=== PATIENT | male | born 1970 | race Hispanic/Latino ===

== ENCOUNTER 2019-10-07 10:00 | Inpatient (IN) | payer BC ==
[~2019-10-07] VITALS: Ht 188 cm; Wt 153.3 kg
[2019-10-07 10:15] VITALS: BP 175/91
[2019-10-07 12:30] LABS: BASOPHILS % (AUTO) 0.7 % (0.0-5.0); EOSINOPHILS % (AUTO) 3.4 % (0.0-8.0); HEMATOCRIT 42.3 % (42-54); LYMPHOCYTES % (AUTO) 30.4 % (21.0-51.0); MEAN CORPUSCULAR HEMOGLOBIN 29.7 pg (27.0-33.0); MEAN CORPUSCULAR HGB CONC 33.1 g/dL (32.0-36.0); MEAN CORPUSCULAR VOLUME 89.6 fL (79-99); NEUTROPHILS % (AUTO) 56.2 % (40.0-77.0); PLATELET COUNT (AUTO) 290 K/uL (130-400); RED BLOOD CELL COUNT(AUTO) 4.72 MIL/uL (4.50-6.20); RED CELL DISTRIBUTION WIDTH 12.6 % (11.0-15.5); WHITE BLOOD COUNT (AUTO) 8.6 K/uL (4.8-10.8)
[2019-10-07 12:39] LABS: APPEARANCE,URINE Clear (CLEAR); BILIRUBIN,URINE Negative (NEGATIVE); COLOR,URINE Yellow (YELLOW); GLUCOSE, URINE (UA) Negative (NEGATIVE); KETONES,URINE Negative (NEGATIVE); LEUKOCYTE ESTERASE ,URINE Negative (NEGATIVE); NITRATE,URINE Negative (NEGATIVE); OCCULT BLOOD,URINE Negative (NEGATIVE); PROTEIN,URINE Negative (NEGATIVE); UROBILINOGEN,URINE 0.2 mg/dL (0.2-1.0)
[2019-10-07 12:48] LABS: CREATININE 1.1 mg/dL (0.5-1.5); INR 0.92 (0.85-1.15); POTASSIUM 4.1 mmol/L (3.5-5.1)
[2019-10-09] MEDS ORDERED: AMLO-257 PO (10:36)
[2019-10-09] MEDS ORDERED: METF-446 PO (10:36)
[2019-10-09] MEDS ORDERED: LOSA100T58 PO (10:36)
[2019-10-10] VITALS (22 sets, daily range): BP systolic 112–179; BP diastolic 63–94
[2019-10-10] MEDS ORDERED: SODIUM CHLORIDE 0.9% 1000ML 1,000 ML IV ONE (08:29)
[2019-10-10] MEDS: CEFAZOLIN SODIUM 1 GM VIAL IVP SCH ×2 (08:30→09:50)
[2019-10-10] MEDS ORDERED: METOCLOPRAMIDE 10 MG/2 ML VIAL ONE (08:39)
[2019-10-10] MEDS ORDERED: KETOROLAC TROMETHAMINE 15MG/ML ONE (08:40)
[2019-10-10] MEDS ORDERED: ACETAMINOPHEN EXTRA STRENGTH 500 MG TABLET ONE (08:40)
[2019-10-10] MEDS ORDERED: CELECOXIB 200 MG CAP ONE (08:40)
--- NOTE | 2019-10-10 09:04 | NUR ---
POTENTIAL FOR INFECTION: CLIPPED LEFT LEG / LT KNEE PER MARILUZ DIXON, FOLLOWED BY WIPING WITH ROSE: 2% CHLORHEXIDINE GLUCONATE CLOTH PATIENTS PRE-OP SKIN PREP
[2019-10-10] MEDS ORDERED: TRANEXAMIC ACID 1000MG/10ML ONE ×2 (09:33→12:57)
[2019-10-10] MEDS ORDERED: CEFAZOLIN SODIUM 1 GM VIAL ONE (09:33)
[2019-10-10] MEDS ORDERED: LIDOCAINE PF 2% 5ML ABBOJECT ONE (09:40)
[2019-10-10] MEDS ORDERED: ROPIVACAINE 0.5% 5MG/ML 30ML IJ ONE (09:40)
[2019-10-10] MEDS ORDERED: SUCCINYLCHOLINE CHLORIDE 20 MG/ML 10 ML VIAL ONE (09:40)
[2019-10-10] MEDS ORDERED: ROCURONIUM 10MG/1ML SYR 10 MG/ML ML ONE (09:41)
[2019-10-10] MEDS ORDERED: FENTANYL CITRATE PF 50 MCG/1 ML 5ML AMP IV ONE (09:41)
[2019-10-10] MEDS ORDERED: PROPOFOL 10 MG/ML 20ML VIAL IV ONE ×2 (09:41→10:43)
[2019-10-10] MEDS ORDERED: ONDANSETRON HCL 4 MG/2 ML VIAL ONE (09:41)
[2019-10-10] MEDS ORDERED: MIDAZOLAM HCL 1 MG/ML 2ML VIAL ONE (09:44)
[2019-10-10] MEDS ORDERED: DEXAMETHASONE SOD PHOSPHATE 10MG/ML 1ML VIAL ONE (10:54)
[2019-10-10] MEDS ORDERED: GLYCOPYRROLATE 1 MG/5 ML SYRINGE ONE (11:45)
[2019-10-10] MEDS ORDERED: NEOSTIGMINE 5MG/5ML SYR IV ONE (11:47)
[2019-10-10] MEDS ORDERED: PHENYLEPHRINE HCL 10 MG/ML 1ML VIAL IV ONE (11:58)
[2019-10-10] MEDS ORDERED: DiphenhydrAMINE HCL 50 MG/ML VIAL IVP PRN (12:00)
[2019-10-10] MEDS ORDERED: POTASSIUM CHLORIDE 20MEQ/100ML 100 ML IV PRN (12:00)
[2019-10-10] MEDS: ACETAMINOPHEN EXTRA STRENGTH 500 MG TABLET PO SCH ×2 (12:00→20:31)
[2019-10-10] MEDS ORDERED: FERROUS FUMARATE 324 MG TABLET PO PRN (12:00)
[2019-10-10] MEDS ORDERED: ONDANSETRON HCL 4 MG/2 ML VIAL IVP PRN (12:00)
[2019-10-10] MEDS ORDERED: LIDOCAINE HCL-MPF 1% 2ML VIAL IV PRN (12:00)
[2019-10-10] MEDS ORDERED: POTASSIUM CHLORIDE 10% ELIXIR 20 MEQ/15 ML UDCUP PO PRN (12:00)
[2019-10-10] MEDS ORDERED: TEMAZEPAM 15 MG CAPSULE PO PRN (12:00)
[2019-10-10] MEDS ORDERED: CALCIUM CARBONATE 500 MG TABLET PO PRN (12:00)
[2019-10-10] MEDS ORDERED: POTASSIUM CHLORIDE 20 MEQ ERTAB PO PRN (12:00)
[2019-10-10] MEDS ORDERED: OXYCODONE HCL 5 MG TAB PO PRN (12:00)
[2019-10-10] MEDS ORDERED: FENTANYL CITRATE PF 50 MCG/1 ML 2ML VIAL ONE (12:01)
[2019-10-10] MEDS ORDERED: MEPERIDINE-PF 25 MG/ML SYG ONE (12:37)
[2019-10-10] MEDS: SODIUM CHLORIDE 0.9% 1000ML 1,000 ML IV SCH (13:45)
[2019-10-10] MEDS: OXYCODONE HCL 5 MG TAB PO PRN ×2 (14:46→23:48)
--- NOTE | 2019-10-10 16:51 | NUR ---
cm note met with patient and states resides at home alone., independent with adls and self care. 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 dc plan is back home at time of dc. per pt states justine will be staying with him at home after dc until he recovers. choice letter obtained for 3 in1 chair, and walker. also for HH . spoke to Tiffany at [facility] [phone] and states pt is accepted and they can followoup if dc over the weekend , have nurse call report. Addendum: 10/10/19 at 1704 by MOISES CASTILLO CM Amended: Links added.
[2019-10-10] MEDS: METFORMIN HCL 500 MG TABLET PO SCH (17:10)
[2019-10-10] MEDS: CEFAZOLIN 3GM /D5W 100ML 100 ML IV SCH (17:11)
[2019-10-10] MEDS: TRAMADOL HCL 50 MG TABLET PO PRN (17:17)
[2019-10-10] MEDS: INSULIN HUMULIN R 100 UNIT/ML 3ML SQ SCH ×2 (17:18→20:51)
[2019-10-10] MEDS: FAMOTIDINE 20MG TAB 20 MG TAB PO SCH (20:30)
[2019-10-10] MEDS: CELECOXIB 200 MG CAP PO SCH (20:30)
[2019-10-10] MEDS: PREGABALIN 25 MG CAP PO SCH (20:31)
[2019-10-10] MEDS: KETOROLAC TROMETHAMINE 15MG/ML IV PRN (20:41)
[2019-10-10] MEDS ORDERED: AMLODIPINE BESYLATE 5 MG TAB PO SCH (21:00)
[2019-10-11] MEDS: SODIUM CHLORIDE 0.9% 1000ML 1,000 ML IV SCH ×2 (00:01→06:08)
[2019-10-11] MEDS: CEFAZOLIN 3GM /D5W 100ML 100 ML IV SCH (00:03)
[2019-10-11 04:00] VITALS: BP 125/78
[2019-10-11] MEDS: ACETAMINOPHEN EXTRA STRENGTH 500 MG TABLET PO SCH ×2 (04:06→11:19)
[2019-10-11 05:11] LABS: HEMATOCRIT 33.9 % (42-54); MEAN CORPUSCULAR HEMOGLOBIN 30.7 pg (27.0-33.0); MEAN CORPUSCULAR HGB CONC 33.9 g/dL (32.0-36.0); MEAN CORPUSCULAR VOLUME 90.4 fL (79-99); RED BLOOD CELL COUNT(AUTO) 3.75 MIL/uL (4.50-6.20); RED CELL DISTRIBUTION WIDTH 12.6 % (11.0-15.5); WHITE BLOOD COUNT (AUTO) 11.2 K/uL (4.8-10.8)
[2019-10-11 05:27] LABS: CREATININE 1.3 mg/dL (0.5-1.5)
[2019-10-11] MEDS: INSULIN HUMULIN R 100 UNIT/ML 3ML SQ SCH ×3 (06:08→16:30)
[2019-10-11] MEDS: OXYCODONE HCL 5 MG TAB PO PRN ×3 (07:04→16:29)
[2019-10-11] MEDS: METFORMIN HCL 500 MG TABLET PO SCH ×2 (07:25→16:27)
[2019-10-11 07:56] VITALS: BP 132/72
[2019-10-11] MEDS: FAMOTIDINE 20MG TAB 20 MG TAB PO SCH (08:34)
[2019-10-11] MEDS: CELECOXIB 200 MG CAP PO SCH (08:34)
[2019-10-11] MEDS: TRAMADOL HCL 50 MG TABLET PO PRN (08:34)
[2019-10-11] MEDS: PREGABALIN 25 MG CAP PO SCH (08:34)
[2019-10-11] MEDS: APIXABAN 2.5 MG TABLET PO SCH ×2 (08:35→17:19)
[2019-10-11] MEDS ORDERED: LOSARTAN 100 MG TABLET PO SCH (09:00)
[2019-10-11] MEDS ORDERED: POLYETHYLENE GLYCOL 3350 17 GM POWD.PACK PO SCH (09:00)
[2019-10-11] MEDS ORDERED: TAMSULOSIN HCL 0.4 MG CAP.ER.24H PO SCH (09:00)
[2019-10-11] MEDS: KETOROLAC TROMETHAMINE 15MG/ML IV PRN (11:17)
[2019-10-11 11:46] VITALS: BP 132/82
[2019-10-11 14:16] VITALS: BP 140/94
--- NOTE | 2019-10-11 14:27 | NUR ---
DCP/[facility] DME: Spoke elsy Vargas this afternoon regarding DME, states hog driver out to deliver equipment. Dr. Palma at nurses station, upated on [facility] acceptance and DME.
[2019-10-11] MEDS ORDERED: HYDR-4457 PO (15:08)
[2019-10-11] MEDS ORDERED: APIX2.5T PO (15:08)
--- NOTE | 2019-10-11 15:40 | NUR ---
[facility] CALLED [facility] [phone] TO GIVE REPORT THAT PATIENT WILL DISCHARGED TODAY. NO ANSWER AT THIS TIME, LEFT VOICEMAIL WITH CALLBACK NUMBER. FAXED MD DISCHARGE ORDERS TO [facility] [phone].
[2019-10-11 16:41] VITALS: BP 122/78
--- NOTE | 2019-10-11 16:45 | NUR ---
[facility] GAVE REPORT TO NURSE FULLER OF [facility] [phone]. INFORMED THAT F/U APPT WITH DR. HERNÁNDEZ PENDING TO BE SCHEDULED, RX, AND ELIO DRESSING TO BE REMOVED ON 10/17/2019, PHYSICAL THERAPY WBAT WITH WALKER.
--- NOTE | 2019-10-11 17:00 | NUR ---
DISCHARGE DISCHARGE TEACHING PROVIDED TO PATIENT REGARDING RX (ELIQUIS, NORCO). PROVIDED WITH RX DISCOUNT FOR ELIQUIS. [facility] HAS DROPPED OFF WALKER AND 3 IN 1 CHAIR ALREADY. PATIENT INFORMED THAT F/U APPT WITH DR. HERNÁNDEZ PENDING TO BE SCHEDULED, AND ELIO DRESSING TO BE REMOVED ON 10/17/2019 BY HOME HEALTH NURSE, CONTINUE PHYSICAL THERAPY TEACHING WBAT TO LLE WITH WALKER. PERFORMING LEFT KNEE ELIO DRESSING CHANGE. LEFT KNEE INCISION APPROXIMATED AND ASYMPTOMATIC, APPLIED NEW ELIO DRESSING, FLASHING GREEN. PATIENT AWAITING HIS TO PICK HIM UP.
--- NOTE | 2019-10-11 17:34 | NUR ---
[employer]: [employer] 30day trial coupon provided to nurse. She will give to patient upon discharge.
[2019-10-13] MEDS ORDERED: BISACODYL 10 MG SUPP.RECT RC PRN (12:00)
== END 2019-10-11 18:15 | disposition home health service (06) | DRG 470 ==
LOC: EDSTATUS 10:00 → DAHIP 10-10 06:10 → 3BH 10-10 13:54
PROVIDERS: ADMIT Orthopaedic Surgery; ATTEND Orthopaedic Surgery
PROC: 0SRD0J9 Replacement of Left Knee Joint with Synthetic Substitute, Cemented, Open Approach (ICD-10-PCS; principal; 2019-10-10 10:00)
DX: M17.12 Unilateral primary osteoarthritis, left knee (principal); Z68.41 Body mass index [BMI] 40.0-44.9, adult; E66.9 Obesity, unspecified; E11.9 Type 2 diabetes mellitus without complications; I10 Essential (primary) hypertension; E78.00 Pure hypercholesterolemia, unspecified; Z82.49 Family history of ischemic heart disease and other diseases of the circulatory system; G89.29 Other chronic pain; Z20.828 Contact with and (suspected) exposure to other viral communicable diseases
CPT/HCPCS: 36415; 80048; 81003; 82948; 85025; 85027; 85610; 87641; 96374; 96375; 97039; G0378; J0330; J0690; J1100; J1815; J1885; J2001; J2175; J2250; J2370; J2405; J2704; J2710; J2765; J2795; J3010; J3490; J7030; J7120